=== PATIENT | female | born 1985 | race Caucasian/White ===

== ENCOUNTER 2024-10-26 11:15 | Inpatient (IN) ==
[2024-10-26] MEDS ORDERED: LIDOCAINE 1% LOCAL 20 ML VIAL INFIL PRN (15:51)
[2024-10-26] MEDS ORDERED: ACETAMINOPHEN 325 MG TAB PO PRN (15:51)
[2024-10-26] MEDS ORDERED: OXYTOCIN 30 UNITS/NSS 30 UNITS/500 ML BAG IV PRN (15:51)
--- NOTE | 2024-10-26 16:04 | History & Physical Report ---
Date of Service October 26, 2024 Assessment & Plan (1) Encounter for induction of labor: (2) 40 weeks gestation of : Plan admit for induction. pitocin then arom as indicated. fetus category one. anticipate . Admission and Anticipated Discharge Date Admission Date: October 26, 2024 History of Present Illness Chief Complaint: postdates iol Primary Care Provider: Jessica Shabazz Patient is a 38yowf with iup at 40 2/7 weeks who presents for iol for postdates. Notes good fm. occasional contractions. no lof/vb. 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 *repeat pap Pt requesting Anesthesia Consult *Anesthesia consult 07/04/24 Arrythmia Noted of f/u Anatomy * Echo---PACs noted -MFM recs weekly FHTs until resolution and if does not resolve by 32wks can switch to weekly NSTs at that time IOL 10/26/24 OB Labs: Hgb 12.2 g/dl (12.0-16.0) 08/02/24 Hct 35.0 % (37.0-47.0) L 08/02/24 Treponema pallidum Ab Negative (Negative) 08/02/24 Glucose 1 Hr 50 gm 131 mg/dl (70-130) H 08/02/24 Maternal Serum AFP 25.4 ng/mL 05/16/24 OB Optional Labs: Alpha Fetoprotein Triple Screen SEE NOTE 05/16/24 Labs Reviewed: Initial OB Labs Blood Type & RH: O+ Antibody Screen: Negative HCT/HGB: Hgb 14/ Hct 39.7 Platelets: 206 Hep C IgG 13yrs+ Old: Negative Pap Test: Awaiting records Chlamydia: Negative Gonorrhea: Negative Rubella: Immune RPR: Negative Urine Culture/Screen: Negative HBsAg: Negative HIV: Negative MCV: 93 Ultrasound: 03/07/24 ANDRA 10/24/24 2 hr gtt wnl at 28 weeks. gbs neg afp--neg Allergies Allergy/AdvReac Type Severity Reaction Status Date / Time No Known Allergies Allergy Verified 10/25/24 13:36 Home Medications Medication Instructions Recorded Confirmed Type pheczuix-mkj-Li-FA 1 tab PO DAILY 03/30/24 10/26/24 History [ Plus] breast pump #1 ea 08/16/24 10/25/24 Rx Patient History Medical History GERD (gastroesophageal reflux disease) with certain foods Back pain chronic Chicken pox (~1989) Surgical History Status post colposcopy H/O wisdom tooth extraction Family History Aunt Breast cancer, Onset Age: 65 maternal Grandfather (Maternal) Colorectal cancer, Onset Age: 80 Grandmother (Paternal) Myocardial infarction Osteoporosis Grandfather (Paternal) Myocardial infarction Osteoporosis Mother Dyslipidemia Hypertension Father Dyslipidemia Hypertension Other Heart disease Denies family history of Ovarian cancer Prostate cancer Social History Smoking Status: Never smoker Second Hand Exposure: No; Do You Dip or Chew Tobacco: No; Hx Alcohol Use: No Hx Substance Use: No Preferred Language: Czech Communication Ability: Effective Grocery Shopper Required: No Beliefs That Will Affect Care: None marital status: marital status details: Quan Jenkins (37) [phone] Current Living Situation: Spouse Current Living Situation Comment: Lives with , 1 cat- changing litter current occupational status: employed current occupation: [employer] Other Information That Helps Us Care for You: No Feels Safe at Home: Yes Safety Concerns: Feels Safe At This Time OB History g1--present [employer] History hx of abnl pap as noted. Physical Exam Constitutional: WD/WN, vitals as above Cardiovascular: Extremities: no calf tenderness and no edema Gastrointestinal (Abdomen): soft, gravid, nt Psychiatric: A+Ox3, euthymic affect Genitourinary: cx--/-2 toco--occasional efm--140s with mod variability, accels to 170s, no decels Coding Level of Care Code None Diagnoses Encounter for induction of labor Z34.90 40 weeks gestation of Z3A.40
[2024-10-26 16:20] LABS: Hematocrit (blood only) 35.1 % (37.0-47.0); Hemoglobin 13.1 g/dl (12.0-16.0); Mean Corpuscular Hemoglobin 34.6 pg (25.0-34.0); Mean Corpuscular Hgb Conc 37.3 g/dL (32.0-36.0); Mean Corpuscular Volume 92.6 fL (80.0-100.0); Mean Platelet Volume 10.3 fL (9.4-12.4); Platelet Count 172 K/uL (130-400); RDW Coefficient of Variation 12.8 % (11.5-14.5); RDW Standard Deviation 42.7 fL (36.4-46.3); Red Blood Count 3.79 M/uL (4.20-5.40); White Blood Count 8.65 K/ul (4.8-10.8)
[2024-10-26] MEDS: LACTATED RINGER'S 1,000 ML IV SCH (16:30)
[2024-10-26] MEDS: OXYTOCIN 30 UNITS/NSS 30 UNITS/500 ML BAG IV PRN (16:36)
[2024-10-26] MEDS ORDERED: LIDOCAINE 2% MPF LOCAL 5 ML VIAL EPI PRN (20:48)
[2024-10-26] MEDS ORDERED: SODIUM CHLORIDE 0.9% PF INJ 10 ML VIAL EPI PRN (20:48)
[2024-10-26] MEDS ORDERED: NALOXONE HCL 0.4 MG/1 ML VIAL/CARP IV PRN (20:48)
[2024-10-26] MEDS ORDERED: diphenhydrAMINE 50 MG/ML VIAL IV PRN (20:48)
[2024-10-26] MEDS ORDERED: ROPIVACAINE 0.5% PF 5 MG/ML 20 ML VIAL EPI PRN (20:48)
[2024-10-26] MEDS ORDERED: NALBUPHINE HCL INJ 10 MG/ML AMP IV PRN (20:48)
[2024-10-26] MEDS ORDERED: ePHEDrine sulfate 50 MG/ML AMP IV PRN (20:48)
[2024-10-26] MEDS ORDERED: fentaNYL citrate PF 100 MCG/2 ML VIAL EPI PRN (20:48)
[2024-10-26] MEDS ORDERED: NALOXONE HCL 1 MG in SODIUM CHLORIDE 0.9% 1,000 ML IV PRN (20:48)
--- NOTE | 2024-10-26 20:51 | Anesthesiology Consultation ---
Date of Service October 26, 2024 Assessment & Plan (1) Encounter for pre-operative examination: Chart Review Chart Review: Patient NOT seen in Pre Admission Testing and Acceptable Risk for Labor Epidural Consults Requested none History Height/Weight Height: 5 ft 6 in Weight: 74.843 kg Allergies Allergy/AdvReac Type Severity Reaction Status Date / Time No Known Allergies Allergy Verified 10/25/24 13:36 Medications Home Medications Medication Instructions Recorded Confirmed Last Taken aavzdbjh-mrv-Qc-FA 1 tab PO DAILY 03/30/24 10/26/24 10/26/24 08:00 [ Plus] breast pump #1 ea 08/16/24 10/25/24 Unknown Active Medications Generic Name Dose Route Start Last Admin Trade Name Freq PRN Reason Stop Dose Admin Oxytocin 30 units in 500 mls @ 10 mls/hr 10/26/24 15:52 10/26/24 20:05 Pitocin 30 Units/Nss IV 10/28/24 15:51 0.6 units/hr .Q24H PRN 10 mls/hr Labor Induction/Augmentation Titration Protocol 0.6 UNITS/HR Lactated Ringer's 1,000 mls @ 80 mls/hr 10/26/24 16:45 10/26/24 16:30 Lr IV 10/27/24 16:44 50 mls/hr .[id number] Administration Past Medical History Medical History GERD (gastroesophageal reflux disease) with certain foods Back pain chronic Chicken pox (~1989) Exercise / Class Metabolic Activity II 4-5 Yardwork/Stairs/Walk up hill Past Family History Family History Aunt Breast cancer, Onset Age: 65 maternal Grandfather (Maternal) Colorectal cancer, Onset Age: 80 Grandmother (Paternal) Myocardial infarction Osteoporosis Grandfather (Paternal) Myocardial infarction Osteoporosis Mother Dyslipidemia Hypertension Father Dyslipidemia Hypertension Other Heart disease Denies family history of Ovarian cancer Prostate cancer Past Surgical History Surgical History Status post colposcopy H/O wisdom tooth extraction Social History Smoking Status: Never smoker Do You Dip or Chew Tobacco: No Hx Alcohol Use: No Hx Substance Use: No Physical Exam Vital Signs Last Vital Signs Temp 36.6 C 10/26/24 19:10 Pulse 72 10/26/24 21:18 Resp 18 10/26/24 19:10 BP 149/82 H 10/26/24 21:06 Pulse Ox 100 10/26/24 21:18 Testing Laboratory Results 10/26/24 16:07
[2024-10-26] MEDS: fentaNYL citrate PF 100 MCG/2 ML VIAL ONE (21:06)
[2024-10-26] MEDS: BUPIVACAINE 0.25% PF 30 ML VIAL ONE (21:06)
[2024-10-26] MEDS: fentANYL 2 MCG/ML BUPIVacaine 0.125%-NSS 100ML BAG ONE (21:19)
[2024-10-26] MEDS: LIDOCAINE 2%/EPINEPHRINE 1:200,000 20 ML PF ONE (21:19)
[2024-10-26] MEDS: SODIUM CHLORIDE 0.9% PF INJ 10 ML VIAL ONE (21:27)
[2024-10-26] MEDS: fentaNYL citrate PF 100 MCG/2 ML VIAL EPI STA (21:27)
[2024-10-26] MEDS: BUPIVACAINE 0.25% PF 30 ML VIAL EPI STA (21:27)
[2024-10-26] MEDS: LIDOCAINE 2%/EPINEPHRINE 1:200,000 20 ML PF EPI STA (21:28)
[2024-10-26] MEDS: SODIUM CHLORIDE 0.9% PF INJ 10 ML VIAL EPI STA (21:28)
[2024-10-26] MEDS: ePHEDrine sulfate 50 MG/ML AMP ONE (22:22)
[2024-10-26] MEDS: CALCIUM CARBONATE 500 MG CHEWABLE TAB PO PRN (22:53)
[2024-10-27] MEDS ORDERED: LIDOCAINE 2%/EPINEPHRINE 1:200,000 20 ML PF ONE (01:34)
[2024-10-27] MEDS: BUPIVACAINE 0.25% PF 30 ML VIAL EPI PRN (01:36)
--- NOTE | 2024-10-27 01:44 | Anesthesia Procedure Note ---
Date of Service October 27, 2024 Anesthesia Epidural Re-Dose Vital Signs Temp Pulse Resp BP Pulse Ox 36.9 C 109 H 18 162/88 H 98 10/27/24 01:00 10/27/24 01:43 10/27/24 01:00 10/27/24 01:43 10/27/24 01:39 Notes Pain Intensity: 0 Dilatation (cm): 10.0 Effacement (%): 100 Called by nursing to evaluate epidural as the patient is having increased pain. The epidural was re-dosed with the following medications (all medications via epidural route) after negative aspiration of the epidural catheter for CSF/HEME. 8mll of 0.25% bupivacaine After Epidural Re-Dose Mental Status: alert / awake / arousable Pain: improving with treatment Airway Patency, RR, SpO2: stable & adequate BP & HR: stable & adequate
[2024-10-27] MEDS: ONDANSETRON INJ 2 MG/ML 2 ML VIAL IV PRN (03:10)
--- NOTE | 2024-10-27 03:19 | Labor Progress Brief Note ---
Date of Service October 27, 2024 Subjective more comfortable with redose. At last check had a ant lip but a lot of pressure to push Assessment & Plan (1) 40 weeks gestation of : (2) Encounter for induction of labor: Plan begin active second stage. fetus category one. It is going to be a tight fit. Admission and Anticipated Discharge Date Admission Date: October 26, 2024 Physical Exam Physical Exam: cx--c/c/0 toco--q1-3min, pit at 14 efm--150s with mod variability, small accels , no decels Results & Data Vital Signs (Past 12 Hours) Vital Signs Temp Pulse Resp BP Pulse Ox 10/27/24 03:14 144 H 100 10/27/24 03:13 139 H 134/92 10/27/24 03:12 126 H 89 L 10/27/24 03:09 150 H 98 10/27/24 03:05 115 H 144/88 H 10/27/24 03:04 123 H 100 10/27/24 02:59 114 H 124/79 99 10/27/24 02:54 98 10/27/24 02:54 99 H 10/27/24 02:54 90 130/79 10/27/24 02:49 95 H 98 10/27/24 02:48 96 H 128/77 10/27/24 02:45 89 133/79 10/27/24 02:44 85 100 10/27/24 02:39 112 H 125/77 99 10/27/24 02:34 96 H 122/76 99 10/27/24 02:29 94 H 98 10/27/24 02:28 111 H 126/78 10/27/24 02:24 89 100 10/27/24 02:23 90 128/78 10/27/24 02:19 113 H 99 10/27/24 02:18 90 123/77 10/27/24 02:14 102 H 98 10/27/24 02:13 100 H 128/78 10/27/24 02:09 97 10/27/24 02:09 107 H 10/27/24 02:09 95 H 132/77 10/27/24 02:04 83 98 10/27/24 02:03 93 H 127/74 10/27/24 01:59 111 H 100 10/27/24 01:58 102 H 119/69 10/27/24 01:57 110 H 120/77 10/27/24 01:56 104 H 122/72 10/27/24 01:54 104 H 127/74 97 10/27/24 01:53 106 H 91 10/27/24 01:52 110 H 131/77 10/27/24 01:51 104 H 132/81 10/27/24 01:50 110 H 133/86 10/27/24 01:49 103 H 130/79 99 10/27/24 01:48 96 H 10/27/24 01:48 130/71 10/27/24 01:48 103 H 127/75 10/27/24 01:46 86 128/83 10/27/24 01:45 97 H 125/87 10/27/24 01:44 99 10/27/24 01:44 92 H 10/27/24 01:44 124/81 10/27/24 01:44 103 H 122/83 10/27/24 01:43 109 H 162/88 H 10/27/24 01:41 101 H 127/79 10/27/24 01:40 82 129/81 10/27/24 01:39 107 H 126/82 98 10/27/24 01:38 88 124/79 10/27/24 01:37 108 H 134/88 10/27/24 01:34 90 98 10/27/24 01:29 92 H 98 10/27/24 01:24 96 H 131/84 100 10/27/24 01:19 99 H 88 L 10/27/24 01:17 107 H 84 L 10/27/24 01:14 94 H 98 10/27/24 01:12 109 H 90 10/27/24 01:09 98 10/27/24 01:09 102 H 10/27/24 01:09 102 H 130/78 10/27/24 01:04 115 H 99 10/27/24 01:00 36.9 C 114 H 18 83 L 10/27/24 00:59 114 H 99 10/27/24 00:55 120 H 140/74 10/27/24 00:54 109 H 90 10/27/24 00:53 111 H 100 10/27/24 00:48 126 H 77 L 10/27/24 00:43 118 H 100 10/27/24 00:39 108 H 133/84 10/27/24 00:38 103 H 100 10/27/24 00:33 92 H 100 10/27/24 00:28 111 H 100 10/27/24 00:24 106 H 137/88 10/27/24 00:23 103 H 100 10/27/24 00:18 98 H 100 10/27/24 00:14 96 H 90 10/27/24 00:13 119 H 100 10/27/24 00:09 100 H 145/89 H 10/27/24 00:08 93 H 100 10/27/24 00:03 117 H 100 10/26/24 23:58 131 H 100 10/26/24 23:54 99 H 142/87 H 10/26/24 23:53 98 H 100 10/26/24 23:48 105 H 100 10/26/24 23:43 98 H 100 10/26/24 23:39 75 121/62 10/26/24 23:38 76 100 10/26/24 23:33 86 100 10/26/24 23:28 89 100 10/26/24 23:25 84 125/69 10/26/24 23:23 91 H 100 10/26/24 23:18 76 100 10/26/24 23:13 69 100 10/26/24 23:09 64 109/61 10/26/24 23:08 65 100 10/26/24 23:03 74 100 10/26/24 23:00 18 10/26/24 23:00 36.8 C 18 10/26/24 22:58 72 100 10/26/24 22:54 70 109/58 L 10/26/24 22:53 75 100 10/26/24 22:48 73 100 10/26/24 22:45 18 10/26/24 22:45 18 10/26/24 22:43 68 100 10/26/24 22:39 67 112/67 10/26/24 22:38 71 99 10/26/24 22:33 65 100 10/26/24 22:30 18 10/26/24 22:30 18 10/26/24 22:28 63 99 10/26/24 22:24 64 113/63 10/26/24 22:23 64 100 10/26/24 22:18 68 99 10/26/24 22:15 18 10/26/24 22:15 18 10/26/24 22:13 68 100 10/26/24 22:09 60 122/71 10/26/24 22:08 61 100 10/26/24 22:04 98 H 128/81 10/26/24 22:03 81 100 10/26/24 22:00 18 10/26/24 22:00 18 10/26/24 21:59 84 117/81 10/26/24 21:58 78 100 10/26/24 21:55 18 10/26/24 21:55 18 10/26/24 21:54 66 129/83 10/26/24 21:53 73 100 10/26/24 21:50 18 10/26/24 21:50 18 10/26/24 21:49 78 131/87 10/26/24 21:48 86 99 10/26/24 21:45 93 H 18 127/83 10/26/24 21:43 83 100 10/26/24 21:40 18 10/26/24 21:40 18 10/26/24 21:39 88 122/79 10/26/24 21:38 85 99 10/26/24 21:35 18 10/26/24 21:35 18 10/26/24 21:33 82 125/77 100 10/26/24 21:32 92 H 125/82 10/26/24 21:31 94 H 130/91 10/26/24 21:30 82 18 128/89 10/26/24 21:29 98 H 118/84 10/26/24 21:28 100 10/26/24 21:28 81 10/26/24 21:28 78 128/83 10/26/24 21:27 87 121/84 10/26/24 21:26 75 126/80 10/26/24 21:25 88 120/80 10/26/24 21:24 78 132/83 10/26/24 21:23 100 10/26/24 21:23 95 H 10/26/24 21:23 90 125/85 10/26/24 21:22 84 132/79 10/26/24 21:21 87 133/81 10/26/24 21:20 80 10/26/24 21:18 72 100 10/26/24 21:13 91 H 100 10/26/24 21:06 72 149/82 H 10/26/24 21:00 18 10/26/24 21:00 36.7 C 18 10/26/24 20:01 68 129/81 10/26/24 19:10 36.6 C 18 10/26/24 19:10 18 10/26/24 19:10 36.6 C 18 10/26/24 19:01 85 127/86 10/26/24 18:26 70 122/86 10/26/24 17:31 71 138/88 10/26/24 16:40 68 118/77 10/26/24 16:04 18 10/26/24 16:04 36.9 C 18 10/26/24 16:03 68 121/80 Coding Level of Care Code None Diagnoses 40 weeks gestation of Z3A.40 Encounter for induction of labor Z34.90
[2024-10-27] MEDS: fentANYL 2 MCG/ML BUPIVacaine 0.125%-NSS 100ML BAG EPI PRN (04:23)
--- NOTE | 2024-10-27 05:14 | Labor Progress Brief Note ---
Date of Service October 27, 2024 Subjective Pushing for about 1.5 hrs. Good effort with first and then quickly fades. Assessment & Plan (1) 40 weeks gestation of : (2) Encounter for induction of labor: Plan Discussed my concern about lack of descent up to this point. discussed need to push harder with each contraction. Fetus tolerating and afebrile. patient and fob express understanding of situation. Admission and Anticipated Discharge Date Admission Date: October 26, 2024 Physical Exam Physical Exam: cx--+1, head not around pubis toco--q1-2, pit at 14 efm--150s with mod variability, variables with contractions Results & Data Vital Signs (Past 12 Hours) Vital Signs Temp Pulse Resp BP Pulse Ox 10/27/24 05:09 150 H 142/77 H 10/27/24 05:06 137 H 99 10/27/24 05:04 120 H 135/63 10/27/24 05:01 122 H 124/75 98 10/27/24 05:00 18 10/27/24 05:00 36.7 C 18 10/27/24 04:56 114 H 98 10/27/24 04:54 131 H 135/77 10/27/24 04:51 141 H 98 10/27/24 04:50 142 H 116/82 10/27/24 04:46 116 H 98 10/27/24 04:43 134 H 133/77 10/27/24 04:41 135 H 99 10/27/24 04:39 131 H 92 10/27/24 04:38 129 H 124/69 10/27/24 04:36 134 H 98 10/27/24 04:34 142 H 130/73 10/27/24 04:31 158 H 98 10/27/24 04:28 131 H 131/73 10/27/24 04:26 130 H 98 10/27/24 04:25 145 H 87 L 10/27/24 04:21 144 H 97 10/27/24 04:17 140 H 90 10/27/24 04:16 128 H 100 10/27/24 04:15 146 H 144/96 H 10/27/24 04:11 134 H 98 10/27/24 04:08 129 H 116/73 10/27/24 04:06 132 H 95 10/27/24 04:04 130 H 91 10/27/24 04:03 136 H 133/79 10/27/24 04:01 149 H 98 10/27/24 03:56 137 H 88 L 10/27/24 03:55 137 H 97 10/27/24 03:53 142 H 117/75 10/27/24 03:50 98 10/27/24 03:50 149 H 10/27/24 03:50 139 H 86 L 10/27/24 03:49 146 H 156/74 H 10/27/24 03:48 133 H 133/78 10/27/24 03:45 125 H 97 10/27/24 03:44 131 H 83 L 10/27/24 03:43 115 H 130/80 10/27/24 03:39 119 H 97 10/27/24 03:38 139 H 126/82 10/27/24 03:37 141 H 86 L 10/27/24 03:34 139 H 132/77 97 10/27/24 03:31 137 H 90 10/27/24 03:29 148 H 123/67 99 10/27/24 03:24 79 L 10/27/24 03:24 147 H 10/27/24 03:24 141 H 182/107 H 10/27/24 03:19 137 H 100 10/27/24 03:18 131 H 142/94 H 10/27/24 03:14 144 H 100 10/27/24 03:13 139 H 134/92 10/27/24 03:12 126 H 89 L 10/27/24 03:09 150 H 98 10/27/24 03:05 115 H 144/88 H 10/27/24 03:04 123 H 100 10/27/24 03:00 18 10/27/24 03:00 36.8 C 18 10/27/24 02:59 114 H 124/79 99 10/27/24 02:54 98 10/27/24 02:54 99 H 10/27/24 02:54 90 130/79 10/27/24 02:49 95 H 98 10/27/24 02:48 96 H 128/77 10/27/24 02:45 89 133/79 10/27/24 02:44 85 100 10/27/24 02:39 112 H 125/77 99 10/27/24 02:34 96 H 122/76 99 10/27/24 02:29 94 H 98 10/27/24 02:28 111 H 126/78 10/27/24 02:24 89 100 10/27/24 02:23 90 128/78 10/27/24 02:19 113 H 99 10/27/24 02:18 90 123/77 10/27/24 02:14 102 H 98 10/27/24 02:13 100 H 128/78 10/27/24 02:09 97 10/27/24 02:09 107 H 10/27/24 02:09 95 H 132/77 10/27/24 02:04 83 98 10/27/24 02:03 93 H 127/74 10/27/24 01:59 111 H 100 10/27/24 01:58 102 H 119/69 10/27/24 01:57 110 H 120/77 10/27/24 01:56 104 H 122/72 10/27/24 01:54 104 H 127/74 97 10/27/24 01:53 106 H 91 10/27/24 01:52 110 H 131/77 10/27/24 01:51 104 H 132/81 10/27/24 01:50 110 H 133/86 10/27/24 01:49 103 H 130/79 99 10/27/24 01:48 96 H 10/27/24 01:48 130/71 10/27/24 01:48 103 H 127/75 10/27/24 01:46 86 128/83 10/27/24 01:45 97 H 125/87 10/27/24 01:44 99 10/27/24 01:44 92 H 10/27/24 01:44 124/81 10/27/24 01:44 103 H 122/83 10/27/24 01:43 109 H 162/88 H 10/27/24 01:41 101 H 127/79 10/27/24 01:40 82 129/81 10/27/24 01:39 107 H 126/82 98 10/27/24 01:38 88 124/79 10/27/24 01:37 108 H 134/88 10/27/24 01:34 90 98 10/27/24 01:29 92 H 98 10/27/24 01:24 96 H 131/84 100 10/27/24 01:19 99 H 88 L 10/27/24 01:17 107 H 84 L 10/27/24 01:14 94 H 98 10/27/24 01:12 109 H 90 10/27/24 01:09 98 10/27/24 01:09 102 H 10/27/24 01:09 102 H 130/78 10/27/24 01:04 115 H 99 10/27/24 01:00 36.9 C 114 H 18 83 L 10/27/24 00:59 114 H 99 10/27/24 00:55 120 H 140/74 10/27/24 00:54 109 H 90 10/27/24 00:53 111 H 100 10/27/24 00:48 126 H 77 L 10/27/24 00:43 118 H 100 10/27/24 00:39 108 H 133/84 10/27/24 00:38 103 H 100 10/27/24 00:33 92 H 100 10/27/24 00:28 111 H 100 10/27/24 00:24 106 H 137/88 10/27/24 00:23 103 H 100 10/27/24 00:18 98 H 100 10/27/24 00:14 96 H 90 10/27/24 00:13 119 H 100 10/27/24 00:09 100 H 145/89 H 10/27/24 00:08 93 H 100 10/27/24 00:03 117 H 100 10/26/24 23:58 131 H 100 10/26/24 23:54 99 H 142/87 H 10/26/24 23:53 98 H 100 10/26/24 23:48 105 H 100 10/26/24 23:43 98 H 100 10/26/24 23:39 75 121/62 10/26/24 23:38 76 100 10/26/24 23:33 86 100 10/26/24 23:28 89 100 10/26/24 23:25 84 125/69 10/26/24 23:23 91 H 100 10/26/24 23:18 76 100 10/26/24 23:13 69 100 10/26/24 23:09 64 109/61 10/26/24 23:08 65 100 10/26/24 23:03 74 100 10/26/24 23:00 18 10/26/24 23:00 36.8 C 18 11/27/24 22:58 72 100 10/26/24 22:54 70 109/58 L 10/26/24 22:53 75 100 10/26/24 22:48 73 100 10/26/24 22:45 18 10/26/24 22:45 18 10/26/24 22:43 68 100 10/26/24 22:39 67 112/67 10/26/24 22:38 71 99 10/26/24 22:33 65 100 10/26/24 22:30 18 10/26/24 22:30 18 10/26/24 22:28 63 99 10/26/24 22:24 64 113/63 10/26/24 22:23 64 100 10/26/24 22:18 68 99 10/26/24 22:15 18 10/26/24 22:15 18 10/26/24 22:13 68 100 10/26/24 22:09 60 122/71 10/26/24 22:08 61 100 10/26/24 22:04 98 H 128/81 10/26/24 22:03 81 100 10/26/24 22:00 18 10/26/24 22:00 18 10/26/24 21:59 84 117/81 10/26/24 21:58 78 100 10/26/24 21:55 18 10/26/24 21:55 18 10/26/24 21:54 66 129/83 10/26/24 21:53 73 100 10/26/24 21:50 18 10/26/24 21:50 18 10/26/24 21:49 78 131/87 10/26/24 21:48 86 99 10/26/24 21:45 93 H 18 127/83 10/26/24 21:43 83 100 10/26/24 21:40 18 10/26/24 21:40 18 10/26/24 21:39 88 122/79 10/26/24 21:38 85 99 10/26/24 21:35 18 10/26/24 21:35 18 10/26/24 21:33 82 125/77 100 10/26/24 21:32 92 H 125/82 10/26/24 21:31 94 H 130/91 10/26/24 21:30 82 18 128/89 10/26/24 21:29 98 H 118/84 10/26/24 21:28 100 10/26/24 21:28 81 10/26/24 21:28 78 128/83 10/26/24 21:27 87 121/84 10/26/24 21:26 75 126/80 10/26/24 21:25 88 120/80 10/26/24 21:24 78 132/83 10/26/24 21:23 100 10/26/24 21:23 95 H 10/26/24 21:23 90 125/85 10/26/24 21:22 84 132/79 10/26/24 21:21 87 133/81 10/26/24 21:20 80 10/26/24 21:18 72 100 10/26/24 21:13 91 H 100 10/26/24 21:06 72 149/82 H 10/26/24 21:00 18 10/26/24 21:00 36.7 C 18 10/26/24 20:01 68 129/81 10/26/24 19:10 36.6 C 18 10/26/24 19:10 18 10/26/24 19:10 36.6 C 18 10/26/24 19:01 85 127/86 10/26/24 18:26 70 122/86 10/26/24 17:31 71 138/88 Coding Level of Care Code None Diagnoses 40 weeks gestation of Z3A.40 Encounter for induction of labor Z34.90
[2024-10-27] MEDS: METHYLERGONOVINE MALEATE 0.2 MG/ML AMP IM ONE (07:18)
--- NOTE | 2024-10-27 07:38 | Delivery Summary ---
Vaginal Delivery Summary Date of Service October 27, 2024 Vaginal Delivery Summary and 1st Degree LAC (and right labial) Pre-operative Diagnosis: at 40 3/7 postdates iol ama Post-operative Diagnosis: same Procedure: pitocin epidural srom right labial and first degree laceration repair QBL: 88cc Anesthesia: epidural Procedure: The patient progressed to c/c/0 and labored down for about 90 minutes. The patient pushed for about 3.75 hours to deliver a viable female infant in hollie position. The nose and mouth were bulb suctioned on the perineum and the rest of the was then delivered without difficulty through a body cord. After the head delivered, large amount of meconium released. The baby was vigorous. The nose and mouth were again bulb suctioned and the infant was placed in the maternal abdomen for drying and attention. Cord was clamped and cut at one minute of life. Cord blood and segment obtained. Placenta delivered spontaneous, intact with a three vessel cord. Cervix/sulci/rectum were intact. A first degree perineal laceration and right labial laceration was repaired in the normal standard fashion. Hemostasis obtained with dilute pitocin and fundal massage, and IM methergine. Apgars were 8/9. Mother and baby doing well at the end of the delivery. [facility] Vaginal Delivery Charge Delivery Type Details: and 1st Degree LAC (and right labial)
[2024-10-27] MEDS ORDERED: OXYTOCIN 30 UNITS/NSS 30 UNITS/500 ML BAG IV PRN (07:45)
[2024-10-27] MEDS ORDERED: bisacodyL 10 MG SUPP PR PRN (07:45)
[2024-10-27] MEDS ORDERED: HYDROCORTISONE ACETATE 25 MG SUPP PR PRN (07:45)
[2024-10-27] MEDS ORDERED: ACETAMINOPHEN 325 MG TAB PO PRN (07:45)
[2024-10-27] MEDS: DIPHTHER/TETAN/PERTUS Vaccine (Tdap, Adol/Adult) 0.5mL IM ONE (08:06)
[2024-10-27] MEDS: oxyCODONE/ACETAMINOPHEN 5mg/325mg TAB PO PRN (08:12)
[2024-10-27] MEDS: BENZOCAINE 20% SPRY 85 APPLN/85 GM CAN EXT PRN (08:12)
[2024-10-27] MEDS: IBUPROFEN 600 MG TAB PO PRN (08:13)
[2024-10-27] MEDS: DOCUSATE SODIUM 100 MG CAP PO SCH (08:13)
[2024-10-27] MEDS: PRENATAL VITAMIN 1 TAB PO SCH (08:14)
--- NOTE | 2024-10-27 09:48 | Anesthesia Procedure Note ---
Date of Service October 27, 2024 Anesthesia Post Epidural Note Vital Signs Vital Signs: Temp Pulse Resp BP Pulse Ox 36.7 C 92 H 18 117/74 100 10/27/24 05:00 10/27/24 09:46 10/27/24 05:00 10/27/24 09:46 10/27/24 07:34 Notes Mental Status: alert / awake / arousable Nausea / Vomiting: adequately controlled Pain: adequately controlled Airway Patency, RR, SpO2: stable & adequate BP & HR: stable & adequate Hydration State: stable & adequate Neuraxial Anesthesia: was administered and sensory block is resolving Anesthetic Complications: no major complications apparent and Pt Satisfied with anesthetic care Epidural: Removed without complications and With tip intact
--- NOTE | 2024-10-28 05:39 | Obstetrical Progress Note ---
Date of Service October 28, 2024 Assessment & Plan (1) 40 weeks gestation of : (2) Encounter for care and examination after delivery: Plan Encourage ambulation Encourage breast feeding Pain meds as needed Monitor Hgb and BPs Anticipate discharge late today or early 10/29/24 Admission and Anticipated Discharge Date Admission Date: October 26, 2024 Supervising Physician Co-Signing Physician Notes Resident Physician Supervision Note: I was present with during the history and exam. I discussed the case with the resident and agree with the findings and plan as documented in the note. Any exceptions or clarifications are listed here: [None] Documented By: Cece Ya MD, FACOG Subjective Pt is 38 yo post- day 1 s/p at 40w2d. Pt was induced for post dates. Ambulation:In room Voiding:voiding normally Passing gas: yes BM: no Diet tolerance:regular diet Lochia:small amount bloody, no clots Feeding type: breast Current pain level: 0-1/10 improved with ibuprofen Resting comfortably this morning in NAD. Denies MONTES, CP, SOB, N/V/D, LE pain/swelling. Review of Systems Review of Systems: As per HPI Physical Exam Constitutional: WD/WN, vitals as above Respiratory: normal respiratory effort, lungs clear to auscultation Cardiovascular: RRR, no murmur, no edema Extremities: no edema Gastrointestinal (Abdomen): normal bowel sounds, soft, nontender, no hepatosplenomegaly Uterine fundus firm and at level of umbilicus Neurologic: PERRL, EOMI, accommodation nl, no face palsy, no dysarthria Moving all 4 extremities on command Psychiatric: A+Ox3, euthymic affect Results & Data Vital Signs (Past 12 Hours) Vital Signs Temp Pulse Resp BP Pulse Ox O2 Del Method 10/28/24 04:00 36.5 C 72 20 98/63 L 99 Room Air 10/28/24 00:00 36.5 C 85 18 110/72 99 Room Air 10/27/24 19:40 36.5 C 74 20 110/71 100 Room Air Resident Activity Tracking Resident Involvement: Resident Care Provided Care Provided: Adult Hospital Medicine
[2024-10-28 07:15] LABS: Hematocrit (blood only) 32.2 % (37.0-47.0); Hemoglobin 11.5 g/dl (12.0-16.0)
[2024-10-28 08:30] VITALS: RESP 18
[2024-10-28] MEDS: NURSING L&D Epidural Breakthrough Pain Update ONE (19:41)
[2024-10-28] MEDS: bisacodyL 5 MG TABEC PO SCH (20:55)
[2024-10-29 04:09] VITALS: O2SAT 99
--- NOTE | 2024-10-29 06:45 | Obstetrical Progress Note ---
Date of Service October 29, 2024 Assessment & Plan (1) 40 weeks gestation of : (2) Encounter for care and examination after delivery: Plan Encourage ambulation Encourage breast feeding Pain meds as needed Monitor BPs Anticipate discharge 10/29/[address] Espinosa in 6 weeks Admission and Anticipated Discharge Date Admission Date: October 26, 2024 Supervising Physician Co-Signing Physician Notes Resident Physician Supervision Note: I interviewed and examined the patient. Discussed with Dr. Chao and agree with findings and plan as documented in the note. Any exceptions or clarifications are listed here: [None] Documented By: Abram Barfield MD, FACOG Subjective Pt is 38 yo post- day 2 s/p at 40w2d. Pt was induced for post dates. Ambulation:In room Voiding:voiding normally Passing gas: yes BM: no Diet tolerance:regular diet Lochia:small amount bloody, small clots Feeding type: breast Current pain level: 0-2/10 improved with ibuprofen Resting comfortably this morning in NAD. Denies MONTES, CP, SOB, N/V/D, LE pain/swelling. Review of Systems Review of Systems: As per HPI Physical Exam Constitutional: WD/WN, vitals as above Respiratory: normal respiratory effort, lungs clear to auscultation Cardiovascular: RRR, no murmur, no edema Extremities: + edema (trace at bilateral ankles) Gastrointestinal (Abdomen): normal bowel sounds, soft, nontender, no hepatosplenomegaly Uterine fundus is 1 cm below umbilicus Neurologic: PERRL, EOMI, accommodation nl, no face palsy, no dysarthria Psychiatric: A+Ox3, euthymic affect Results & Data Vital Signs (Past 12 Hours) Vital Signs Temp Pulse Resp BP Pulse Ox O2 Del Method 10/29/24 03:35 36.5 C 72 18 105/64 99 Room Air 10/28/24 23:00 36.4 C L 64 18 118/73 100 Room Air Resident Activity Tracking Resident Involvement: Resident Care Provided Care Provided: Adult Hospital Medicine
[2024-10-29 09:44] VITALS: BP 116/74; PULSE 62; TEMP 97.9
== END 2024-10-29 12:50 | disposition home or self-care (01) | DRG 807 ==
LOC: 4S1 15:12 → 4E2 10-27 11:15